=== PATIENT | male | born 1955 | race Caucasian/White ===

== ENCOUNTER 2023-02-14 13:01 | Emergency (ER) | payer MEDICARE, SELFPAY ==
[2023-02-14] VITALS (12 sets, daily range): BP systolic 127–161; BP diastolic 66–91; PULSE 65–82; RESP 18; TEMP 36.7; O2SAT 96–100; BMI 27.3
[2023-02-14 13:49] LABS: Add Manual Diff / Slide Review NO; Basophils Absolute Auto 0 /uL (0-100); Basophils Percent Auto 0.5 % (0-2); Eosinophils Absolute Auto 100 /uL (0-450); Hematocrit 40.3 % (41-53); Hemoglobin 13.6 g/dL (13.5-17.5); Lymphocytes Absolute Auto 1400 /uL (1100-4500); Lymphocytes Percent Auto 27.1 % (25-40); Mean Corpuscular HGB Conc 33.8 % (30-36); Mean Corpuscular Hemoglobin 30.8 PG (26-34); Mean Corpuscular Volume 91.1 fL (80-100); Monocytes Absolute Auto 500 /uL (0-900); Monocytes Percent Auto 9.1 % (3-14); Neutrophils Absolute Auto 3300 /uL (1500-7000); Neutrophils Percent Auto 62.3 % (50-75); Platelet Count 245 X10^3/uL (150-400); Red Blood Cell Count 4.42 X10^6/uL (4.5-5.9); Red Cell Distribution Width 13.8 % (11.6-14.8); White Blood Cell Count 5.3 X10^3/uL (4.5-11.0)
[2023-02-14 14:04] LABS: Alanine Aminotransferase 29 IU/L (<50); Albumin 4.2 g/dL (3.5-5.0); Albumin Globulin Ratio 1.4 (1.0-2.8); Alkaline Phosphatase 90 U/L (38-126); Aspartate Aminotransferase 33 IU/L (17-59); Bilirubin Total 1.2 mg/dL (0.2-1.3); Blood Urea Nitrogen 19 mg/dL (9-20); Calcium 10.6 mg/dL (8.4-10.2); Carbon Dioxide 25 mmol/L (22-32); Chloride 107 mmol/L (98-107); Estimated Glomerular Filt Rate > 60 mL/min (>60); Globulin 3.1 g/dL (1.7-4.1); Glucose 96 mg/dL (80-110); HEMOLYSIS 28 (0-50); Lipase 44 U/L (23-300); Potassium 4.3 mmol/L (3.4-5.1); Sodium 137 mmol/L (137-145); Total Protein 7.3 g/dL (6.3-8.2)
--- NOTE | 2023-02-14 15:51 | DI.US.S_ITS ---
PROCEDURE: US SCROTUM INDICATIONS: LEFT TESTICULAR PAIN TECHNIQUE: Real-time scanning was performed of the scrotum and testicles, with image documentation. Color and pulse Doppler interrogation was performed of both testicles. COMPARISON: None. FINDINGS: Right: Testicle is normal in size at 2.5 x 1.4 x 2.4 cm, and heterogeneous in echotexture. 1.3 x 1.5 x 1.2 cm simple cyst is noted in right testes. Multiple small calcifications also seen scattered in testicular parenchyma. Epididymis is heterogeneous echotexture. Multiple right epididymal cysts are noted measures up to 5 x 4 x 9 mm in size. No hydrocele or varicoceles. Overlying scrotal skin is normal in thickness. Left: Testicle is normal in size at 2.2 x 1.1 x 1.6 cm, and heterogeneous in echotexture. Multiple small calcifications are noted in left testes. No discrete testicular mass. Epididymis is slightly heterogeneous in echotexture. Mild left-sided hydrocele is seen. No varicocele. Overlying scrotal skin is normal in thickness. Doppler: Color and pulse Doppler demonstrate normal and symmetric arterial flow in both testicles. IMPRESSION: 1. Slightly atrophic bilateral testes with multiple calcifications and a simple cyst in right testes as above. No solid appearing testicular lesion. No evidence of testicular torsion. 2. Slightly heterogeneous bilateral epididymal echotexture. Simple cysts in right epididymis. Small amount of left-sided hydrocele. Dictated by: Marvin Vanegas M.D. on 02/14/2023 at 16:45 Approved by: Marvin Vanegas M.D. on 02/14/2023 at 16:49
--- NOTE | 2023-02-14 15:51 | DI.CT.S_ITS ---
PROCEDURE: CT KIDNEY URETER BLADDER (KUB) INDICATIONS: left sided pain TECHNIQUE: Axial sections were acquired from the lung bases to the pubic symphysis. Coronal and sagittal reformats were performed. For radiation dose reduction, the following was used: automated exposure control, adjustment of mA and/or kV according to patient size. COMPARISON: None. FINDINGS: Image quality: Excellent. Lung bases: Unremarkable. Heart: No significant findings. URINARY: Right Kidney: 6.4 cm probable Bosniak 2 cyst of the middle pole of the right kidney. No right renal stone or solid mass or hydronephrosis. Right Ureter: No hydroureter. Left Kidney: A hyperdense lesion in the middle pole measuring 1 cm likely represents a hyperdense cyst. There is a 2 cm exophytic cyst off the middle pole. No stone or hydronephrosis. Left Ureter: No hydroureter. Bladder: Normal wall thickness. No stones. Mild enlargement of the prostate. ABDOMEN: Liver: Unremarkable. Gallbladder: Unremarkable. Biliary ducts: Unremarkable. Pancreas: Unremarkable. Spleen: Unremarkable. Adrenal Glands: Unremarkable. Stomach and Bowel: Stomach, small bowel loops, and colon are unremarkable. Peritoneum: No abnormal intraperitoneal fluid. No free air. Ventral Wall: No hernia. Abdominal Nodes: No enlarged retroperitoneal or mesenteric lymph nodes. Vessels: Aorta and inferior vena cava are normal in size. PELVIS: Pelvic Organs: Unremarkable. Pelvic Nodes: Unremarkable. Miscellaneous: Very small fat containing right inguinal hernia.. Bones: No lytic or blastic lesions. No compression fractures. Exuberant L4-L5 facet arthropathy with anterolisthesis of L4 on L5 measuring approximately 7 mm with severe canal stenosis. IMPRESSION: 1. No renal stone, ureteral stone, or hydronephrosis. 2. Probable 1 cm hyperdense cyst, left kidney. 3. Probable 6.4 cm maximum diameter Bosniak 2 cyst of the right kidney. 4. Lumbar degenerative change with severe canal stenosis at L4-L5. Dictated by: Cali Yin M.D. on 02/14/2023 at 16:05 Approved by: Cali Yin M.D. on 02/14/2023 at 16:10
--- NOTE | 2023-02-14 15:51 | ED.ABDPAIN ---
HPI - Abdominal Pain General Chief Complaint: Abdominal Pain Stated Complaint: ABD pain Time Seen by Provider: 02/14/23 13:34 Source: patient Mode of arrival: Ambulatory History of Present Illness HPI narrative: Patient healthy 67-year-old male presents today with ongoing left flank pain radiating to his abdomen and left testicle. He reports that in May he was aggressively masturbating, when he felt a twinge and ever since then he has had pain in the same area. However last week he started noticing in his back radiating to his groin. He was seen and evaluated in organ I am able to review his records on MyChart. He had blood work and a CT which did not show any nephrolithiasis with did show some hydronephrosis. He is not had any diverticulitis. He continues to have pain in his quite worried about his testicle and is requesting ultrasound of his testicles. He denies any swelling redness or pain. No fever. Denies any hematuria. No nausea or vomiting. He describes pain is fairly constant but easily controlled Review of Systems Review of Systems ROS Unobtainable: All systems reviewed & are unremarkable except as noted in HPI and below Patient History Social History Smoking Status: Never smoker Smoking Status: Never smoker alcohol intake frequency: 0-2 drinks per day Alcohol type: beer and wine Substance Use Type: does not use Exam Initial Vital Signs Initial Vital Signs: Vital Signs Temperature 98.1 F 02/14/23 13:22 Pulse Rate 80 02/14/23 13:22 Respiratory Rate 18 02/14/23 13:22 Blood Pressure 142/70 H 02/14/23 13:22 Pulse Oximetry 96 02/14/23 13:22 Oxygen Delivery Method Room Air 02/14/23 13:22 GENERAL: Alert pleasant male HEENT: Head atraumatic,EOMI, pupils reactive, face symmetric, moist mucous membranes CARDIOVASCULAR: Regular rate and rhythm without murmurs, rubs or gallops. RESPIRATORY: Breath sounds equal bilaterally, no wheezes rales or rhonchi. ABDOMEN: Soft, nontender. Normoactive bowel sounds all 4 quadrants. No guarding or rebound. : Minimal left flank pain, [place] nurse at bedside for testicular exam. Testicles are small nontender non erythematous no inguinal hernia is felt bilaterally EXTREMITIES: Normal range of motion, no clubbing or edema. Neurovascularly intact NEUROLOGICAL: Alert and oriented x4.Normal gait and speech. SKIN: Warm, dry, no laceration, no petechiae, no rashes or lesions. Course Orders Ordered: ED Orders 02/14/23 13:38 Complete Blood Count AUTO DIFF Stat Comprehensive Metabolic Panel Stat Lipase Stat 02/14/23 15:51 CT kidney ureter bladder (KUB) Stat US scrotum Stat Vital Signs Vital signs: Vital Signs - 8 hr 02/14/23 13:22 02/14/23 13:40 02/14/23 13:40 Temperature 98.1 F Pulse Rate 80 76 Respiratory Rate 18 Blood Pressure 142/70 H 143/77 H Pulse Oximetry 96 97 Oxygen Delivery Method Room Air 02/14/23 13:41 02/14/23 13:41 02/14/23 14:00 Temperature Pulse Rate 72 Respiratory Rate Blood Pressure 127/73 145/66 H Pulse Oximetry 97 Oxygen Delivery Method 02/14/23 14:00 02/14/23 14:30 02/14/23 14:30 Temperature Pulse Rate 67 65 Respiratory Rate Blood Pressure 140/67 Pulse Oximetry 96 100 Oxygen Delivery Method 02/14/23 15:00 02/14/23 15:00 02/14/23 15:21 Temperature Pulse Rate 69 82 Respiratory Rate Blood Pressure 149/72 H Pulse Oximetry 100 98 Oxygen Delivery Method 02/14/23 15:21 02/14/23 15:30 02/14/23 15:30 Temperature Pulse Rate 72 Respiratory Rate Blood Pressure 142/68 H 142/69 H Pulse Oximetry 99 Oxygen Delivery Method 02/14/23 16:00 02/14/23 16:30 02/14/23 17:00 Temperature Pulse Rate 76 71 68 Respiratory Rate Blood Pressure Pulse Oximetry 98 98 100 Oxygen Delivery Method 02/14/23 17:03 Temperature Pulse Rate 73 Respiratory Rate Blood Pressure 161/91 H Pulse Oximetry 99 Oxygen Delivery Method Room Air MDM - Abdominal Pain Lab Data 02/14/23 13:38 02/14/23 13:38 Labs: Lab Results 02/14/23 02/14/23 Range/Units 13:38 13:38 WBC 5.3 (4.5-11.0) X10^3/uL RBC 4.42 L (4.5-5.9) X10^6/uL Hgb 13.6 (13.5-17.5) g/dL Hct 40.3 L (41-53) % MCV 91.1 (80-100) fL MCH 30.8 (26-34) PG MCHC 33.8 (30-36) % RDW 13.8 (11.6-14.8) % Plt Count 245 (150-400) X10^3/uL Neut % (Auto) 62.3 (50-75) % Lymph % (Auto) 27.1 (25-40) % Martin % (Auto) 9.1 (3-14) % Eos % (Auto) 1.0 L (2-4) % Baso % (Auto) 0.5 (0-2) % Neut # (Auto) 3300 (2906-5153) /uL Lymph # (Auto) 1400 (3318-5910) /uL Martin # (Auto) 500 (0-900) /uL Eos # (Auto) 100 (0-450) /uL Baso # (Auto) 0 (0-100) /uL Sodium 137 (137-145) mmol/L Potassium 4.3 (3.4-5.1) mmol/L Chloride 107 (98-107) mmol/L Carbon Dioxide 25 (22-32) mmol/L BUN 19 (9-20) mg/dL Creatinine 1.00 (0.66-1.25) mg/dL Estimated GFR > 60 (>60) mL/min BUN/Creatinine Ratio 19.0 (6-22) Glucose 96 (80-110) mg/dL Calcium 10.6 H (8.4-10.2) mg/dL Total Bilirubin 1.2 (0.2-1.3) mg/dL AST 33 (17-59) IU/L ALT 29 (<50) IU/L Alkaline Phosphatase 90 (38-126) U/L Total Protein 7.3 (6.3-8.2) g/dL Albumin 4.2 (3.5-5.0) g/dL Globulin 3.1 (1.7-4.1) g/dL Albumin/Globulin Ratio 1.4 (1.0-2.8) Lipase 44 (23-300) U/L Point of care testing: Urine Dip Bedside Urine Glucose Negative Bedside Urine Bilirubin - Negative Bedside Urine Ketone + 15 Urine Specific [place] 1.020 Bedside Urine Occult Blood - Negative Bedside Urine pH 6.0 Bedside Urine Protein - Negative Bedside Urine Urobilinogen - Negative Bedside Urine Nitrite - Negative Bedside Urine Leukocytes - Negative Esterase Imaging Data US scrotum: Radiologist's Impression: PROCEDURE:? US SCROTUM ? INDICATIONS:? LEFT TESTICULAR PAIN ? TECHNIQUE:? Real-time scanning was performed of the scrotum and testicles, with image documentation.? Color and pulse Doppler interrogation was performed of both testicles.? ? COMPARISON:? None. ? FINDINGS:? ? Right:? Testicle is normal in size at 2.5 x 1.4 x 2.4 cm, and heterogeneous in echotexture.? 1.3 x 1.5 x 1.2 cm simple cyst is noted in right testes.? Multiple small calcifications also seen scattered in testicular parenchyma.? Epididymis is heterogeneous echotexture.? Multiple right epididymal cysts are noted measures up to 5 x 4 x 9 mm in size.? No hydrocele or varicoceles.? Overlying scrotal skin is normal in thickness.? ? Left:? Testicle is normal in size at 2.2 x 1.1 x 1.6 cm, and heterogeneous in echotexture.? Multiple small calcifications are noted in left testes.? No discrete testicular mass.? Epididymis is slightly heterogeneous in echotexture.? Mild left-sided hydrocele is seen.? No varicocele.? Overlying scrotal skin is normal in thickness.? ? Doppler:? Color and pulse Doppler demonstrate normal and symmetric arterial flow in both testicles.? ? IMPRESSION:? ? 1. Slightly atrophic bilateral testes with multiple calcifications and a simple cyst in right testes as above.? No solid appearing testicular lesion.? No evidence of testicular torsion. ? 2. Slightly heterogeneous bilateral epididymal echotexture.? Simple cysts in right epididymis.? Small amount of left-sided hydrocele. ? ? Dictated by: Marvin Vanegas M.D. on 02/14/2023 at 16:45 ? ? CT scan - abdomen/pelvis: Radiologist's Impression: PROCEDURE:? CT KIDNEY URETER BLADDER (KUB) ? INDICATIONS:? left sided pain ? TECHNIQUE:? Axial sections were acquired from the lung bases to the pubic symphysis.? Coronal and sagittal reformats were performed.? For radiation dose reduction, the following was used: ?automated exposure control, adjustment of mA and/or kV according to patient size.? ? COMPARISON:? None. ? FINDINGS:? Image quality:? Excellent.? ? Lung bases:? Unremarkable.? ? Heart:? No significant findings. ? URINARY: Right Kidney:? 6.4 cm probable Bosniak 2 cyst of the middle pole of the right kidney.? No right renal stone or solid mass or hydronephrosis.? Right Ureter:? No hydroureter.? ? Left Kidney:? A hyperdense lesion in the middle pole measuring 1 cm likely represents a hyperdense cyst.? There is a 2 cm exophytic cyst off the middle pole.? No stone or hydronephrosis.? Left Ureter:? No hydroureter.? ? Bladder:? Normal wall thickness. No stones.? Mild enlargement of the prostate.? ? ABDOMEN: Liver:? Unremarkable.? ? Gallbladder:? Unremarkable.? ? Biliary ducts:? Unremarkable.? ? Pancreas:? Unremarkable.? ? Spleen:? Unremarkable.? ? Adrenal Glands:? Unremarkable.? ? ? Stomach and Bowel:? Stomach, small bowel loops, and colon are unremarkable.? Peritoneum:? No abnormal intraperitoneal fluid.? No free air.? ? Ventral Wall: ? No hernia.? Abdominal Nodes:? No enlarged retroperitoneal or mesenteric lymph nodes.? Vessels:? Aorta and inferior vena cava are normal in size.? ? PELVIS: Pelvic Organs:? Unremarkable.? ? Pelvic Nodes: Unremarkable. Miscellaneous:? Very small fat containing right inguinal hernia.. ? ? ? Bones:? No lytic or blastic lesions.? No compression fractures.? Exuberant L4-L5 facet arthropathy with anterolisthesis of L4 on L5 measuring approximately 7 mm with severe canal stenosis. ? IMPRESSION:? ? 1.? No renal stone, ureteral stone, or hydronephrosis. ? 2. Probable 1 cm hyperdense cyst, left kidney. ? 3. Probable 6.4 cm maximum diameter Bosniak 2 cyst of the right kidney. ? 4. Lumbar degenerative change with severe canal stenosis at L4-L5.? Dictated by: Cali Yin M.D. on 02/14/2023 at 16:05 ? ? Approved by: Cali Yin M.D. on 02/14/2023 at 16:10 ? MDM Narrative Medical decision making narrative: Patient is a healthy 67-year-old male presenting today with ongoing left flank pain and left testicular pain. He was already seen evaluated last week. Today blood work is overall reassuring without any clinical significance. CT does not show any evidence of nephrolithiasis however he does have cyst on both right and left kidneys. Testicular exam showed small atrophic testicles which is confirmed on ultrasound. At this time no need for any further evaluation or workup. Patient can follow-up outpatient as needed. Discharge Plan Departure Patient Disposition: Home Clinical Impression: Testicular pain, left Instructions: DI for Testicular Pain Activity Restrictions/Additional Instructions: *You have been diagnosed with testicular pain *What to do: At this time blood work CT and ultrasound are overall reassuring. Please follow-up. You are found to have renal cysts which will need further evaluation *Continue to take medications as directed Motrin 600 mg every 6 hours if needed for [id number] pain *Follow up with your primary care provider in 2-3 days or call [phone] *Return to ER if you should have increasing pain swelling weakness or any new, worsening or concerning symptoms Stand Alone Forms: Patient Portal/API
== END 2023-02-14 17:03 | disposition home or self-care (01) ==
PROVIDERS: Emergency Provider Emergency Medicine
DX: N50.812 Left testicular pain (principal); R10.9 Unspecified abdominal pain
CPT/HCPCS: 36415; 74176; 76870; 80053; 81003; 83690; 85025; 93975; 99283; 99284